=== PATIENT | female | born 1955 | race Caucasian/White ===

== ENCOUNTER → 2024-01-14 16:04 | Outpatient (REF) | payer OTHER, SELFPAY | LOC: RAD 16:04 | PROVIDERS: ATTENDING PHYSICIAN Internal Medicine Cardiovascular Disease; FAMILY PHYSICIAN Family Medicine | DX: R91.1 Solitary pulmonary nodule (principal) | CPT/HCPCS: 71250 ==

== ENCOUNTER → 2024-01-22 06:25 | Day surgery (SDC) | payer OTHER, SELFPAY | LOC: GI 06:25 | PROVIDERS: ATTENDING PHYSICIAN Internal Medicine | DX: D12.2 Benign neoplasm of ascending colon (principal); K64.9 Unspecified hemorrhoids; K57.30 Diverticulosis of large intestine without perforation or abscess without bleeding; K59.00 Constipation, unspecified; R19.4 Change in bowel habit | CPT/HCPCS: 45385; 88305 ==

== ENCOUNTER → 2024-02-03 09:39 | Outpatient (REF) | payer OTHER, SELFPAY | LOC: RAD 09:39 | PROVIDERS: ATTENDING PHYSICIAN Internal Medicine; FAMILY PHYSICIAN Family Medicine | DX: R14.0 Abdominal distension (gaseous) (principal) | CPT/HCPCS: 76700 ==

== ENCOUNTER → 2024-07-30 10:08 | Outpatient (REF) | payer OTHER, SELFPAY | LOC: RCS 10:08 | PROVIDERS: ATTENDING PHYSICIAN Orthopaedic Surgery; FAMILY PHYSICIAN Family Medicine | DX: Z01.818 Encounter for other preprocedural examination (principal) | CPT/HCPCS: 93005 ==

== ENCOUNTER → 2024-11-11 08:04 | Outpatient (REF) | payer OTHER, SELFPAY | LOC: WDC 08:04 | PROVIDERS: ATTENDING PHYSICIAN Family Medicine | DX: Z12.31 Encounter for screening mammogram for malignant neoplasm of breast (principal) | CPT/HCPCS: 77063; 77067 ==

== ENCOUNTER 2025-05-31 20:00 | Emergency (ER) | payer OTHER, SELFPAY ==
[2025-05-31 20:09] VITALS: BP 172/103
--- NOTE | 2025-05-31 20:15 | ED.GENMED ---
Addendum entered and electronically signed by Uday Grullon DO 06/01/25 03:40:
Exam should include the patient does have tenderness along the left paraspinal region to the lower Thoracics on the left. There is no rash.
No respiratory distress
No CVA tenderness bilaterally
Lower extremities are warm and well-perfused without edema
Normal range of motion bilateral lower extremities
Original Note:
ED Provider Triage
<Birgit Olivares PA-C - Last Filed: 05/31/25 20:16>
-
Patient seen by provider in Triage?: Seen in Triage
Attestation: A medical screening examination has been initiated by a qualified medical provider. Based on the assessment performed at this time, it has been determined that an emergent medical condition may exist and the patient has been informed
that further medical evaluation and possible additional diagnostic testing may be needed.
HPI: 69yoF here with L flank pain that began earlier today. Non-radiating. +Nausea. Denies vomiting. Hx of alcohol use. Worried about her kidneys and her pancreas.
GENERAL: Alert , in no apparent distress
EYE: No visual abnormalities.
NECK: Trachea midline
ENT: No visible abnormalities.
LUNGS: No acute respiratory distress
NEUROLOGICAL: Alert and oriented
SKIN: Skin intact. No visible changes.
MUSCULOSKELETAL: Moving extremities normally
PSYCH: Normal and appropriate interaction.
This is a medical evaluation conducted in person to initiate diagnostic evaluation and provide initial therapeutics. Please see further documentation by the treating clinician.
Abdominal labs, troponin/EKG, UA, and CT abdomen without contrast ordered. Percocet for pain.
History of Present Illness
<Birgit Olivares PA-C - Last Filed: 05/31/25 20:16>
General
Chief Complaint: Flank Pain
Time Seen by Provider: 06/01/25 01:49
<Uday Grullon DO - Last Filed: 06/01/25 03:32>
General
Source: patient
History of Present Illness
History of Present Illness:
Note:
CHIEF COMPLAINT(S)
Back pain
HISTORY OF PRESENT ILLNESS
The patient is a 69-year-old female who presented with back pain. The pain began as a dull ache this morning and progressively worsened throughout the day. The patient described the pain as more pronounced when she moves, indicating a possible
musculoskeletal cause. She denied any fever and did not report a rash, which may rule out conditions like shingles. The pain is localized more to the left paraspinal area, higher on the back, and is tender upon palpation. The patient also reported
that the pain is exacerbated when she lies on her back, and the only somewhat comfortable position is on her left side, although it still hurts in that position. She denied any recent falls or injuries.
The patient had a CT scan, which did not reveal any kidney stones or inflammation around the pancreas. The pain pattern suggests it could be related to her musculoskeletal system, as opposed to pancreatitis or renal stones, where positional changes
generally do not affect pain.
PAST MEDICAL AND SURIGICAL HISTORY
The patient indicated having high cholesterol.
ADDITIONAL HISTORY OBTAINED FROM SOURCES OTHER THAN THE PATIENT
According to the radiologists report reviewed, there were no visible kidney stones or pancreatic inflammation on the CT scan.
ALLERGIES
The patient reports no known allergies.
REVIEW OF SYSTEMS
- Musculoskeletal: Pain worsens with movement, specifically lying on the back, alleviated partially when lying on the left side.
- Gastrointestinal: No reported fever or rash.
- Neurological: Pain is exacerbated with specific positions.
PHYSICAL EXAM
General: Alert, no acute distress.
Musculoskeletal: Tenderness noted in the left paraspinal area, worse with movement and in certain positions.
PROBLEM LIST
Acute problems:
- Back pain
PLAN
The plan includes administering an injectable non-steroidal anti-inflammatory drug, Toradol, to manage pain effectively in combination with two doses of Percocet for pain relief. The combination is intended to control the patients pain while also
addressing potential inflammation.
The physician expressed concern about the patients ability to drive home safely after receiving pain management that includes Percocet.
DIFFERENTIAL DIAGNOSIS
The Differential Diagnosis includes, in no particular order and is not limited to:
1. Musculoskeletal pain
2. Kidney infection
3. Renal stone
4. Pancreatitis
5. Rib fracture or pathology
6. Herpes zoster
7. Gallbladder disease
8. Internal bleeding
9. Pyelonephritis
10. Intercostal muscle strain
EKG
My independent EKG interpretation is:
- Time of EKG: Not specified
- Rhythm: Normal sinus rhythm
- Heart Rate: Not specified
- MD Interval: Normal
- QRS Duration: Normal
- QT Interval: Normal
- [place]: Normal
- Abnormalities: None observed
- ST Segment Changes: None
- T Wave Inversions: None
- Arrhythmias: None
Disposition:
SUMMARY OF ENCOUNTER
The patient is a 69-year-old female who presented to the emergency department with left-sided back pain, which has worsened with movement. She finds some relief when lying in a lateral recovery position. Physical examination did not reveal any rash,
ruling out shingles. The patients pain showed mild improvement following pain control measures. A comprehensive workup, including CBC, basic metabolic panel (BMP), liver function tests (LFTs), and troponin, all returned with normal values. A
urinalysis indicated trace microscopic hematuria. A CT scan showed no evidence of an aortic aneurysm or other santacruz findings, although lung nodules were noted, which the patient was already aware of and planned to follow up on. The clinical picture
suggested a musculoskeletal cause of pain, possibly due to certain movements exacerbating her symptoms. The absence of hypoxia, tachycardia, or pleuritic features ruled out a pulmonary embolism. An alternative differential included neuropathic pain
from the lower thoracic spine. The treatment plan included trial management with pain control and recommending NSAIDs. The patient agreed to follow up with her primary care physician and to seek further care if symptoms worsen.
ASSESSMENT
Probable musculoskeletal pain in the left back area potentially exacerbated by certain movements. Differential diagnoses considered include neuropathic pain and musculoskeletal origin due to pattern of pain presentation and responsiveness to rest.
EMERGENCY TREATMENTS ADMINISTERED
Administered medications for pain with a combination of NSAIDs and potential opioid support with Percocet (acetaminophen/oxycodone).
PLAN
The plan involves continued pain management with NSAIDs and potential opioid support while the patient is monitored for response. She has been advised to follow up with her primary care physician for ongoing care and to return to the ED if symptoms
worsen.
INDEPENDENT REVIEW OF LABS AND INTERPRETATION OF TESTS
My independent review of CBC is normal.
My independent review of BMP is normal.
My independent review of LFTs is normal.
My independent review of troponin is negative.
My independent review of urinalysis indicates trace microscopic hematuria.
My independent review of CT scan is no aortic aneurysm or other santacruz findings; lung nodules present.
PATIENT EDUCATION AND COUNSELING
The patient was educated on the suspected musculoskeletal nature of her pain and the importance of adhering to the pain management plan with NSAIDs. She was advised to follow up with her primary care physician for further evaluation and monitoring
of her lung nodules.
FOLLOW-UP INSTRUCTIONS
Patient agrees to follow up with her primary care provider and return to the emergency department if her symptoms worsen.
MEDICAL DECISION MAKING
1. Number and Complexity of Problems Addressed:
Chronic conditions affecting care include high cholesterol. The differential diagnosis includes musculoskeletal pain, neuropathic pain, and other considerations ruled out by imaging and tests such as kidney infection, renal stone, pancreatitis, rib
fracture or pathology, herpes zoster, gallbladder disease, internal bleeding, pyelonephritis, and intercostal muscle strain.
2. Data:
Category 1
External record reviewed: Radiologist report indicating no kidney stones or pancreatic inflammation.
Clinical information was obtained from an independent historian: Review of radiologists notes confirming CT findings.
Category 2
My independent interpretation of EKG indicates normal sinus rhythm with no abnormalities.
3. Risk:
Prescription medication was prescribed, including NSAIDs and opioids, to manage pain.
DIAGNOSIS
ICD-10 Code M54.5 - Low Back Pain likely of musculoskeletal origin.
Past History
<Birgit Olivares PA-C - Last Filed: 05/31/25 20:16>
Past History
ED Past Medical History: HTN
ED Past Surgical History: None
Social History
Tobacco: Former smoker
Alcohol: Daily (wine one glass)
Personal:
Living: with family
Phy Exam
<Uday Grullon DO - Last Filed: 06/01/25 03:32>
Physical Exam
Physical Exam:
.
Course
<Birgit Olivares PA-C - Last Filed: 05/31/25 20:16>
Orders/Labs/Results
Orders:
Orders
05/31/25 20:14
Electrocardiogram (*1) Urgent
Reason for Study: Abdominal Pain
CT Abd/pel Without Iv Or Oral Urgent
Comment:
Reason For Exam: L flank pain
EKG- Treatment ONCE
Oxycodone/Acetaminophen [Percocet 5/325] 1 tablet PO NOW STA
05/31/25 20:24
Complete Blood Count/With Diff Urgent
Comprehensive Metabolic Panel Urgent
Lipase Urgent
Troponin I Urgent
05/31/25 20:27
Urinalysis Reflex To Culture Urgent
Date Specimen was Collected: 05/31/25
Time Specimen was Collected: 20:25
Urine Microscopic Reflex Cult Urgent
06/01/25 02:34
Ketorolac [Toradol] 30 mg IM NOW STA
Oxycodone/Acetaminophen [Percocet 5/325] 2 tablet PO NOW STA
06/01/25 03:22
Vital Signs- Treatment ONCE
Frequency: Once
Abnormal Lab Results
05/31/25 05/31/25
20:24 20:27
RBC 3.92 L 10^6/uL
(4.20-5.40)
Hct 36.9 L %
(37.0-47.0)
MCH 33.4 H pg
(27.0-31.0)
Absolute Monos (auto) 1.0 H 10^3/uL
(0.1-0.6)
Lymphocytes % 19.5 L %
(20.5-51.1)
Monocytes % 10.8 H %
(1.7-9.3)
Sodium 133 L mmol/L
(135-145)
BUN 22 H mg/dl
(7-17)
Glucose 146 H mg/dl
(70-99)
ALT 39 H U/L
(0-35)
Urine Ketones 1+ A
(Negative)
Ur Occult Blood Reflex 1+ A
(Negative)
Urine RBC 3-6 A /HPF
(0-2)
Urine Bacteria (Reflex) Few A
(Negative)
Urine Albumin (Reflex) 1+ A
(Neg - Trace)
05/31/25 20:24
05/31/25 20:24
Vital Signs
Initial and Last Documented VS:
Initial Vital Signs
Temp Pulse Resp BP Pulse Ox
98.4 F 83 16 172/103 100
05/31/25 20:09 05/31/25 20:09 05/31/25 20:09 05/31/25 20:09 05/31/25 20:09
Last Documented Vital Signs
Temp Pulse Resp BP Pulse Ox
98.4 F 87 18 154/66 100
05/31/25 20:09 06/01/25 03:15 06/01/25 03:15 06/01/25 03:00 05/31/25 20:16
<Uday Grullon, DO - Last Filed: 06/01/25 03:32>
Orders/Labs/Results
Orders:
Orders
05/31/25 20:14
Electrocardiogram (*1) Urgent
Reason for Study: Abdominal Pain
CT Abd/pel Without Iv Or Oral Urgent
Comment:
Reason For Exam: L flank pain
EKG- Treatment ONCE
Oxycodone/Acetaminophen [Percocet 5/325] 1 tablet PO NOW STA
05/31/25 20:24
Complete Blood Count/With Diff Urgent
Comprehensive Metabolic Panel Urgent
Lipase Urgent
Troponin I Urgent
05/31/25 20:27
Urinalysis Reflex To Culture Urgent
Date Specimen was Collected: 05/31/25
Time Specimen was Collected: 20:25
Urine Microscopic Reflex Cult Urgent
06/01/25 02:34
Ketorolac [Toradol] 30 mg IM NOW STA
Oxycodone/Acetaminophen [Percocet 5/325] 2 tablet PO NOW STA
06/01/25 03:22
Vital Signs- Treatment ONCE
Frequency: Once
Abnormal Lab Results
05/31/25 05/31/25
20:24 20:27
RBC 3.92 L 10^6/uL
(4.20-5.40)
Hct 36.9 L %
(37.0-47.0)
MCH 33.4 H pg
(27.0-31.0)
Absolute Monos (auto) 1.0 H 10^3/uL
(0.1-0.6)
Lymphocytes % 19.5 L %
(20.5-51.1)
Monocytes % 10.8 H %
(1.7-9.3)
Sodium 133 L mmol/L
(135-145)
BUN 22 H mg/dl
(7-17)
Glucose 146 H mg/dl
(70-99)
ALT 39 H U/L
(0-35)
Urine Ketones 1+ A
(Negative)
Ur Occult Blood Reflex 1+ A
(Negative)
Urine RBC 3-6 A /HPF
(0-2)
Urine Bacteria (Reflex) Few A
(Negative)
Urine Albumin (Reflex) 1+ A
(Neg - Trace)
05/31/25 20:24
05/31/25 20:24
Vital Signs
Initial and Last Documented VS:
Initial Vital Signs
Temp Pulse Resp BP Pulse Ox
98.4 F 83 16 172/103 100
05/31/25 20:09 05/31/25 20:09 05/31/25 20:09 05/31/25 20:09 05/31/25 20:09
Last Documented Vital Signs
Temp Pulse Resp BP Pulse Ox
98.4 F 87 18 154/66 100
05/31/25 20:09 06/01/25 03:15 06/01/25 03:15 06/01/25 03:00 05/31/25 20:16
<Birgit Olivares PA-C - Last Filed: 05/31/25 20:16>
*Pulse Oximetry
SaO2: 100
Oxygen Mode of Delivery: Room air
<Uday Grullon DO - Last Filed: 06/01/25 03:32>
*Pulse Oximetry
Patient hypoxic: no
*Critical Care Note
Total Time (30-74mins, 75-104mins- exclusive of procedures): Not Applicable
Data Reviewed
Source: patient
ED Attending Note
<Birgit Olivares PA-C - Last Filed: 05/31/25 20:16>
-
Portions of this chart may have been created with voice recognition software.� Occasional wrong word or��sound alike� substitutions may have occurred due to the inherent limitations of voice recognition software.
Discharge Plan
Departure
Patient Disposition: Home (Routine Discharge)
Date of Disposition: 06/01/25
Time of Disposition: 03:23
Patient with high blood pressure during this ER visit?: Yes
Discharge Problem:
Acute left flank pain, Back pain
Instructions: Flank Pain (DC), BLOOD PRESSURE, Narcotic Pain Medication
Prescriptions:
New
hydrocodone-acetaminophen 5-325 mg tablet
2 tab PO Q6H PRN (Reason: Pain) Qty: 15 0RF
No Action
amlodipine 2.5 MG tablet
2.5 mg PO DAILY
multivitamin with folic acid [Tab-A-Cesar] 1 TABLET tablet
1 tab PO DAILY
rivaroxaban [Xarelto] 15 MG tablet
15 mg PO BID Qty: 42 0RF
Rx Instructions:
take 15mg BID for 21 days, then stop and start 20mg daily
rivaroxaban [Xarelto] 20 MG tablet
20 mg PO QPM Qty: 60 0RF
Rx Instructions:
Start after completion of Xarelto 15mg two times a day
Referrals:
Yomaira Friedman MD [Family Provider, Family Practice]
Activity Restrictions/Additional Instructions:
Please see your doctor next 3 to 5 days for follow-up and reevaluation as further workup may be necessary symptoms persist. Return immediately for chest pain, shortness of breath, fevers, rash, worsening pain, motor weakness of any kind or any
other concerns. You did have microscopic blood in your urine, please be sure to have your doctor repeat your urinalysis in the next 2 weeks to ensure it clears. You are also found to have nodules on your CT scan please follow-up as was advised in
the past
Interventions
Interventions:
[place]-Wrqgkx-Dfokkvibwd Assessment Last Done: 06/01/25 01:57
ED-Female Genitourinary Assessment Last Done: 06/01/25 01:57
Discharge Date and Time
Print Language: [place]
[2025-05-31] MEDS: PERCOCET 5/325 1 TABLET PO (20:25)
[2025-05-31 20:44] LABS: Hematocrit 36.9 % (37.0-47.0); Hemoglobin 13.1 g/dL (12.0-16.0); Mean Corp Hgb Conc. 35.5 g/dL (33.0-37.0); Mean Corpuscular Volume 94.1 fL (81.0-99.0); Nucleated Red Blood Cells % 0 %; Platelet Count 233 10^3/uL (130-400); Red Cell Dist. Width 13.1 % (11.5-14.5)
[2025-05-31 20:45] LABS: Urine Character Clear (Clear)
[2025-05-31 20:59] LABS: Urine Squamous Cell 0-2 /LPF (Few)
[2025-05-31 21:00] LABS: Urine White Cell 0-2 /HPF (0-5)
[2025-05-31 21:05] LABS: Troponin I < 0.012 ng/ml
[2025-05-31 21:09] LABS: ALT (SGPT) 39 U/L (0-35); AST (SGOT) 31 U/L (14-36); Albumin 4.5 g/dl (3.5-5.0); Alkaline Phosphatase 79 U/L (38-126); Blood Urea Nitrogen 22 mg/dl (7-17); Calcium 9.5 mg/dl (8.4-10.2); Carbon Dioxide 26 mmol/L (22-30); Chloride 101 mmol/L (98-107); Glucose 146 mg/dl (70-99); Potassium 4.2 mmol/L (3.5-5.1); Sodium 133 mmol/L (135-145); Total Protein 6.8 g/dl (6.3-8.2); eGFR > 60.00
[2025-05-31 21:11] LABS: Lipase 119 U/L (23-300)
[2025-06-01] VITALS: BMI 25.9
[2025-06-01 01:15] VITALS: BP 129/101
[2025-06-01 02:00] VITALS: BP 139/64
[2025-06-01] MEDS: PERCOCET 5/325 2 TABLET PO (02:54)
[2025-06-01] MEDS: TORADOL 30 MG IM (02:55)
[2025-06-01 03:00] VITALS: BP 154/66
== END 2025-06-01 03:50 | disposition home or self-care (01) ==
LOC: EMR 20:00
PROVIDERS: Physician Assistant; EMERGENCY PHYSICIAN Emergency Medicine; FAMILY PHYSICIAN Family Medicine
DX: R10.9 Unspecified abdominal pain (principal); M54.50 Low back pain, unspecified; R31.29 Other microscopic hematuria; E78.00 Pure hypercholesterolemia, unspecified; I10 Essential (primary) hypertension; Z87.891 Personal history of nicotine dependence
CPT/HCPCS: 96372; 99284; 74176; 80053; 81003; 81015; 83690; 84484; 85025; 93005

== ENCOUNTER → 2025-06-22 13:38 | Outpatient (REF) | payer OTHER, SELFPAY | LOC: PAVMRI 13:38 | PROVIDERS: ATTENDING PHYSICIAN Physician Assistant; FAMILY PHYSICIAN Family Medicine | DX: M54.6 Pain in thoracic spine (principal) | CPT/HCPCS: 72146 ==